=== PATIENT | male | born 1945 | race Caucasian/White ===

== ENCOUNTER → 2016-11-29 | Outpatient (CLI) | payer OTHER ==
--- NOTE | 2016-11-29 15:06 | DI ---
PA /LATERAL CHEST X-RAY, 11/29/2016 12:48 PM : Clinical History: Cough Previous Exam: None at this facility. There is no acute soft tissue or bony abnormality. Heart size is normal. Lungs are clear. Mediastinal structures are normal. There are no pulmonary nodules. IMPRESSION: Normal chest x-ray.
== END ==
LOC: LAB 13:11 → ORTHO 13:11
PROVIDERS: ATTEND Physician Assistant
DX: R05 Cough (principal); R90.82 White matter disease, unspecified; R42 Dizziness and giddiness; R51 Headache; I61.9 Nontraumatic intracerebral hemorrhage, unspecified; D75.89 Other specified diseases of blood and blood-forming organs; Z86.39 Personal history of other endocrine, nutritional and metabolic disease
CPT/HCPCS: 36415; 71020; 82607; 82728; 82746; 83540; 83550